=== PATIENT | male | born 2000 | race African-American/Black ===

== ENCOUNTER 2023-03-05 11:36 | Inpatient (IN) | payer OTHER ==
[~2023-03-05] VITALS: Ht 185.4 cm; Wt 140.6 kg
[2023-03-05 11:44] VITALS: BP_SYST 126; PULSE 95; RESP 22; TEMP 97.4; O2SAT 95
[2023-03-05 12:19] LABS: BASOPHILS # (AUTO) 0.1 K/uL (0.0-0.2); BASOPHILS % (AUTO) 0.6 % (0.0-2.0); EOSINOPHILS # (AUTO) 0.1 K/uL (0.0-0.4); EOSINOPHILS % (AUTO) 0.8 % (0.0-4.0); HEMATOCRIT 47.1 % (36-54); LYMPHOCYTES # (AUTO) 2.7 K/uL (1.0-5.5); LYMPHOCYTES % (AUTO) 21.3 % (20.5-51.5); MEAN CORPUSCULAR HEMOGLOBIN 26 pg (27-31); MEAN CORPUSCULAR HGB CONC 32 % (32-36); MEAN CORPUSCULAR VOLUME 82 fL (79.0-98.0); MONOCYTES # (AUTO) 0.8 K/uL (0.0-1.0); NEUTROPHILS % (AUTO) 71.3 % (40.0-70.0); PLATELET COUNT (AUTO) 398 K/uL (130-430); RED BLOOD CELL COUNT(AUTO) 5.73 MIL/uL (4.2-6.2); RED CELL DISTRIBUTION WIDTH 14.2 % (9.0-15.0); WHITE BLOOD COUNT (AUTO) 12.7 K/uL (4.8-10.8)
[2023-03-05 12:30] LABS: ANION GAP 11 (5-15); CALCIUM 8.7 mg/dL (8.4-11.0); CARBON DIOXIDE 26 mmol/L (23-29); CHLORIDE 105 mmol/L (98-107); CREATININE 1.03 mg/dL (0.55-1.30); GFR AFRICAN AMERICAN 115 mL/min (>90); GLUCOSE 121 mg/dL (74-106); POTASSIUM 3.6 mmol/L (3.5-5.1); SODIUM SERUM 142 mmol/L (136-145); UREA NITROGEN, BLOOD 14 mg/dL (8-21)
[2023-03-05 12:33] LABS: INR 1.1 (0.80-1.20); PROTHROMBIN TIME 11.4 SECS (9.5-12.5)
[2023-03-05 12:37] LABS: ALANINE AMINOTRANSFERASE 15 U/L (12-78); ALBUMIN 3.4 g/dL (3.4-4.8); ASPARTATE AMINOTRANSFERASE 19 U/L (10-37); CREATINE KINASE, TOTAL 91 U/L (39-308); TOTAL BILIRUBIN 0.7 mg/dL (0.0-1.0); TOTAL PROTEIN, SERUM 7.4 g/dL (6.4-8.3)
[2023-03-05 12:40] LABS: GFR NON AFRICAN-AMERICAN 95 mL/min (>90)
[2023-03-05] MEDS ORDERED: ONDANSETRON HCL 4 MG/2 ML VIAL IVP PRN (13:45)
[2023-03-05] MEDS ORDERED: HYDROcodone/ACETAMIN 10-325 MG TAB PO PRN (13:45)
[2023-03-05] MEDS ORDERED: HYDROcodone/ACETAMIN 5-325 MG TAB (NORCO/ VICODIN) PO PRN (13:45)
[2023-03-05] MEDS ORDERED: LORazepam 2 MG/ML VIAL IVP PRN (13:45)
[2023-03-05] MEDS ORDERED: ACETAMINOPHEN 325 MG TABLET PO PRN ×2 (13:45→14:00)
[2023-03-05] MEDS ORDERED: NALOXONE HCL 0.4 MG/ML AMP (NARCAN) IVP PRN ×2 (13:45)
[2023-03-05] MEDS: NORMAL SALINE 5 ML DISP.SYRIN IVF SCH ×2 (14:15→21:31)
[2023-03-05 16:00] VITALS: BP_SYST 133; PULSE 78; RESP 20; TEMP 98.2; O2SAT 97
[2023-03-05] MEDS ORDERED: ATRMDI INH (16:13)
[2023-03-05] MEDS ORDERED: NOR10 PO (16:13)
[2023-03-05] MEDS ORDERED: LOSA1TAB40 PO (16:13)
[2023-03-05] MEDS ORDERED: METO25TA6 PO (16:13)
[2023-03-05 16:15] VITALS: BP_SYST 133; PULSE 82; RESP 20; TEMP 98.2; O2SAT 96
[2023-03-05 19:00] VITALS: BP_SYST 126; PULSE 84; RESP 16; TEMP 98.1; O2SAT 98
[2023-03-05 20:00] VITALS: BP_SYST 126; PULSE 84; RESP 16; TEMP 98.1; O2SAT 98
[2023-03-06 00:22] VITALS: BP_SYST 114; PULSE 73; RESP 18; TEMP 97.6; O2SAT 97
[2023-03-06] MEDS: NORMAL SALINE 5 ML DISP.SYRIN IVF SCH ×3 (05:03→21:22)
[2023-03-06 06:47] LABS: BASOPHILS % (AUTO) 0.3 % (0.0-2.0); EOSINOPHILS # (AUTO) 0.1 K/uL (0.0-0.4); HEMATOCRIT 46.4 % (36-54); HEMOGLOBIN 14.7 g/dL (14.0-18.0); LYMPHOCYTES # (AUTO) 2.7 K/uL (1.0-5.5); LYMPHOCYTES % (AUTO) 23.6 % (20.5-51.5); MEAN CORPUSCULAR HEMOGLOBIN 26 pg (27-31); MEAN CORPUSCULAR HGB CONC 32 % (32-36); MEAN CORPUSCULAR VOLUME 83 fL (79.0-98.0); MONOCYTES % (AUTO) 8.4 % (1.7-9.3); NEUTROPHILS # (AUTO) 7.6 K/uL (1.8-7.7); NEUTROPHILS % (AUTO) 66.7 % (40.0-70.0); PLATELET COUNT (AUTO) 376 K/uL (130-430); RED BLOOD CELL COUNT(AUTO) 5.59 MIL/uL (4.2-6.2); WHITE BLOOD COUNT (AUTO) 11.5 K/uL (4.8-10.8)
[2023-03-06 06:53] LABS: BARBITURATE, URINE NEGATIVE (NEG <=200); BENZODIAZEPINE, URINE NEGATIVE (NEG <=150); METHAMPHETAMINES SCREEN,URINE NEGATIVE (NEG <=500); URINE AMPHETAMINE NEGATIVE (NEG <=500); URINE METHADONE NEGATIVE (NEG <=200)
[2023-03-06 06:54] LABS: CANNABINOID, URINE NEGATIVE (NEG <=50); COCAINE, URINE NEGATIVE (NEG <=150); OPIATE, URINE NEGATIVE (NEG <=100); PHENCYCLIDINE SCREEN,URINE NEGATIVE (NEG <=25); UR TRICYCLIC ANTIDEPRESSANTS NEGATIVE (NEG <=300); URINE OXYCODONE SCREEN NEGATIVE (NEG <=100); URINE PROPOXYPHENE SCREEN NEGATIVE (NEG <=300)
[2023-03-06 07:10] LABS: ALBUMIN 3.4 g/dL (3.4-4.8); CALCIUM 8.7 mg/dL (8.4-11.0); CREATININE 0.96 mg/dL (0.55-1.30); PHOSPHORUS 4.5 mg/dL (2.7-4.5); POTASSIUM 4.4 mmol/L (3.5-5.1); TOTAL BILIRUBIN 0.8 mg/dL (0.0-1.0); TOTAL PROTEIN, SERUM 7.3 g/dL (6.4-8.3)
[2023-03-06 08:00] VITALS: BP_SYST 127; PULSE 74; RESP 18; TEMP 97.6; O2SAT 100
[2023-03-06 09:37] VITALS: O2SAT 100
[2023-03-06 11:30] VITALS: BP_SYST 144; PULSE 85; RESP 19; TEMP 98.6; O2SAT 96
[2023-03-06 17:30] VITALS: BP_SYST 132; PULSE 95; RESP 19; TEMP 97.9; O2SAT 95
[2023-03-06] MEDS ORDERED: AMIODARONE HCL 150 MG in D5W 100 ML IV ONE (17:30)
[2023-03-06 20:30] VITALS: BP_SYST 135; PULSE 96; RESP 20; TEMP 98.2; O2SAT 96
[2023-03-06] MEDS: AMIODARONE HCL 450 MG in D5W 241 ML IV SCH (20:37)
[2023-03-07] VITALS (7 sets, daily range): BP systolic 117–158; PULSE 88–99; RESP 18–24; TEMP 96.8–98.9; O2SAT 96–98
[2023-03-07] MEDS: AMIODARONE HCL 450 MG in D5W 241 ML IV SCH (03:08)
[2023-03-07] MEDS: NORMAL SALINE 5 ML DISP.SYRIN IVF SCH ×2 (06:24→14:24)
[2023-03-07] MEDS ORDERED: AMIODARONE HCL 200 MG TABLET PO ONE (10:00)
[2023-03-07] MEDS ORDERED: AMIO200T61 PO (18:55)
[2023-03-07] MEDS ORDERED: AMIODARONE HCL 200 MG TABLET PO SCH (21:00)
== END 2023-03-07 20:32 | disposition home or self-care (01) | DRG 201 ==
LOC: SED 11:36 → STU 12:59
PROVIDERS: ADMIT Preventive Medicine Preventive Medicine/Occupational Environmental Medicine; ATTEND Preventive Medicine Preventive Medicine/Occupational Environmental Medicine
DX: I47.20 Ventricular tachycardia, unspecified (principal); E44.1 Mild protein-calorie malnutrition; R65.10 Systemic inflammatory response syndrome (SIRS) of non-infectious origin without acute organ dysfunction; I11.9 Hypertensive heart disease without heart failure; I10 Essential (primary) hypertension; E66.01 Morbid (severe) obesity due to excess calories; R73.9 Hyperglycemia, unspecified; G47.33 Obstructive sleep apnea (adult) (pediatric); Z91.199 Patient's noncompliance with other medical treatment and regimen due to unspecified reason; Z68.41 Body mass index [BMI] 40.0-44.9, adult
CPT/HCPCS: 36415; 71045; 80053; 80307; 82550; 83735; 83880; 84100; 84484; 85025; 85610-TC; 85730-TC; 93306; 97116-GP; 97163-GP; 99285; G0378; J0282; J7050; J7060